=== PATIENT | male | born 1990 | race Caucasian/White ===

== ENCOUNTER 2017-05-27 16:09 | Emergency (ER) | payer OTHER ==
[2017-05-27 16:27] VITALS: BP 120/67; PULSE 78; TEMP 98.4; O2SAT 97
[2017-05-27] MEDS ORDERED: TDAP ADULT 0.5 ML INJ (BOOSTRIX) IM ONE (17:40)
--- NOTE | 2017-05-27 17:42 | EDPHY ---
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 He felt immediate pain and it started bleeding. He applied direct pressure. He is unsure of his last tetanus. Denies paresthesias/decreased range of use. Modifying Factors: Direct pressure Comment: ROS: see HPI Constitutional: No fever, no chills, no weight loss Eyes: No blurred vision Respiratory: No shortness of breath, no cough Cardiovascular: No chest pain Gastrointestinal: No nausea, no vomiting no diarrhea Genitourinary: No dysuria Extremities: No myalgias Neurologic: No weakness, no numbness Skin: No rashes Hematologic: No bruising, no bleeding MEDICAL/SURGICAL/SOCIAL HISTORY: Medical history: Generally healthy. Does not take any regular medications. Surgical history: Denies Social history: Employed CONSTITUTIONAL: Young adult white male awake and alert, no obvious distress HEENT: Atraumatic and normocephalic, PERRL, EOMI. Tympanic membranes clear. Oropharynx clear, no exudate and moist pink mucosa. Airway patent. No lymphadenopathy. No meningismus. Cardiovascular: Normal S1/S2, regular rate, regular rhythm, without murmur rub or gallop. PULMONARY/CHEST: Symmetrical and nontender. Clear to auscultation bilaterally. Good air movement. No accessory muscle usage. ABDOMEN: Soft, nondistended, nontender, no rebound, no guarding, no peritoneal signs, no masses or organomegaly. No CVAT. EXTREMITIES: 2/2 pulses, left hand middle phalanx on the finger pad; no nail involvement; so C-shaped 2 cm deep laceration. PIP/DIP flexion and extension are intact. Good light touch sensation. no deformities, no clubbing, no cyanosis or edema. NEUROLOGICAL: no focal neuro deficits. GCS 15. SKIN: Warm and dry, no erythema. no rash. Good capillary refill. Source: Patient Exam Limitations: No limitations - Personal History Current Tetanus/Diphtheria Vaccine: Unsure - Medical/Surgical History Hx Asthma: No Hx Chronic Respiratory Disease: No Hx Diabetes: No Hx Cardiac Disease: No Hx Renal Disease: No Hx Cirrhosis: No Hx Alcoholism: No Hx HIV/AIDS: No Hx Splenectomy or Spleen Trauma: No Other PMH: denies - Social History Smoking Status: Current every day smoker Constitutional: Initial Vital Signs Temperature (C) 36.9 C 05/27/17 16:25 Heart Rate 78 05/27/17 16:25 Respiratory Rate 18 05/27/17 16:25 Blood Pressure 120/67 05/27/17 16:25 O2 Sat (%) 97 05/27/17 16:25 O2 Delivery Mode Room Air Allergies/Adverse Reactions: No Known Allergies Allergy (Unverified 05/27/17 16:23) Home Medications: Medication Instructions Recorded NK [No Known Home Meds] 05/27/17 Medical Decision Making Procedures: Procedure: Laceration repair. Verbal consent was obtained from the patient. The c-shaped 2 cm deep laceration on the left middle finger pad was anesthetized in the usual fashion. The wound was irrigated, draped and explored to its base with a gloved finger. There were no deep structures involved. No tendon injury was identified. The wound was repaired with #7, 6 0 Prolene. Good hemostasis was achieved and patient tolerated procedure well. Xeroform, gauze and finger splint were applied. The procedure was performed by myself. ED Course/Re-evaluation: Wound care, laceration repair, IM medications ordered Tetanus booster was given Laceration was repaired with a total #7 Prolene sutures. Xeroform, gauze and finger splint were placed. No signs of neurovascular compromise/tenting of skin/compartment syndrome/ extremities and joints examined above and below area of concern and are neurovascularly intact/tendon injury/nerve injury. Differential Diagnosis: Differential diagnosis includes but is not limited to laceration, contusion, finger sprain, nerve injury, tendon injury Departure - Departure Disposition: Home, Routine, Self-Care Clinical Impression: Laceration of left middle finger Qualifiers: Encounter type: initial encounter Damage to nail status: without damage Foreign body presence: without foreign body Qualified Code(s): S61.213A - Laceration without foreign body of left middle finger without damage to nail, initial encounter Condition: Good Instructions: Finger Laceration (ED), Care For Your Stitches (ED) Additional Instructions: Keep the dressing and splint in place for 48 hours. Please keep splint and dressing dry during this time After 48 hours, you may remove the dressing; wash the site daily with mild soap and water; then pat dry. Take ibuprofen 600 mg every 6-8 hours with food as needed for pain and inflammation. Your laceration today was repaired with sutures. You may return to the emergency room in 07-10 days to have them removed Follow up with Orthopedics in 7-10 days if you have any numbness/tingling/ decreased range of motion at which time they will re-evaluate you. Referrals: Robbi Booth MD [Medical Doctor] - As per Instructions
[2017-05-27 18:24] VITALS: RESP 15
== END 2017-05-27 18:23 | disposition home or self-care (01) ==
PROC: 0HQGXZZ Repair Left Hand Skin, External Approach (ICD-10-PCS; principal; 2017-05-27)
DX: S61.213A Laceration without foreign body of left middle finger without damage to nail, initial encounter (principal); F17.200 Nicotine dependence, unspecified, uncomplicated; Z23 Encounter for immunization; W26.8XXA Contact with other sharp object(s), not elsewhere classified, initial encounter; Y92.69 Other specified industrial and construction area as the place of occurrence of the external cause; Y99.0 Civilian activity done for income or pay; Y93.89 Activity, other specified
CPT/HCPCS: L3925